=== PATIENT | female | born 1965 | race Caucasian/White ===

== ENCOUNTER 2021-04-19 03:48 | Outpatient (CLI) | payer BC, SELFPAY ==
[2021-04-19 09:03] LABS: ALT 28 U/L (14-59); AST 23 U/L (15-37); Alkaline Phosphatase 48 U/L (46-116); Anion Gap 8.2 mmol/L (3-11); BUN 15 mg/dL (7-18); Bilirubin, Total 0.4 mg/dL (0.2-1.0); CO2 27.8 mmol/L (21.0-32.0); CREATININE 0.6 mg/dL (0.55-1.02); Calculated LDL 76 mg/dL (<100); Chloride 105 mmol/L (98-107); Cholesterol 231 mg/dL (<200); Glucose 84 mg/dL (74-106); HDL Cholesterol 131 mg/dL (40-60); Potassium 4.9 mmol/L (3.5-5.1); Sodium 141 mmol/L (136-145); Total Protein 6.8 g/dL (6.4-8.2); Triglyceride 122 mg/dL (<150)
== END 2021-04-19 03:49 | disposition home or self-care (01) ==
PROVIDERS: PCP Family Medicine; Visit Provider Family Medicine
DX: Z13.220 Encounter for screening for lipoid disorders (principal)
CPT/HCPCS: 36415; 80053; 80061

== ENCOUNTER 2024-02-18 10:10 | Emergency (ER) | payer BC, SELFPAY ==
--- NOTE | 2024-02-18 10:00 | DI.CT_ITS ---
Exam(s) CT HEAD WO EXAM: CT HEAD WO CLINICAL HISTORY: Acute psychosis. TECHNIQUE: Imaging Protocol: Axial computed tomography images with coronal and sagittal reformatted images were created and reviewed COMPARISON: No exams were available for comparison FINDINGS: Ventricles and Extra axial spaces: Normal in size and morphology for the patient's age. Hemorrhage: None. Cerebral parenchyma: No evidence of acute infarct or mass. Bilateral basal ganglia calcifications. White matter changes of small vessel disease, prominent for the patient's age. Midline shift: None. Brainstem/Cerebellum: Normal. Calvarium: Normal. Visualized Paranasal sinuses:Clear. Mastoids: Clear. Soft Tissues: Unremarkable. ORBITS: Unremarkable. PITUITARY: Not enlarged. IMPRESSION: No acute intracranial process. RADIATION DOSE DELIVERED: 774.85mGy.cm Total DLP DATA REPOSITORY: All CT scans at this facility are submitted to the National Radiology Data Registry (NRDR) Dose Index Registry (DIR) with the [employer] (ACR). RADIATION OPTIMIZATION: All CT scans at this facility use at least one of these dose optimization te chniques: automated exposure control; mA and/or kV adjustment per patient size (includes targeted exa ms where dose is matched to clinical indication); or iterative reconstruction.
[2024-02-18 10:15] VITALS: BP 159/94; PULSE 83; RESP 20; TEMP 37; O2SAT 98
[2024-02-18 10:47] LABS: BE (Venous) 5 mmol/L (-2-3); HCO3 (Venous) 29 mmol/L (23-28); O2 Sat (Venous) 68 %; TCO2 (Venous) 26 mmol/L (24-29); pCO2 (Venous) 41 mmHg (41-51); pH (Venous) 7.45 (7.31-7.41); pO2 (Venous) 37 mmHg
[2024-02-18 10:49] LABS: Absolute Basophil Count 0.02 10^3/uL (0.0-0.2); Absolute Lymphocyte Count 0.74 10^3/uL (1.2-3.4); Absolute Monocyte Count 0.26 10^3/uL (0.1-0.8); Basophils % 0.6; HCT 32.8 % (36.0-46.0); Lymphocytes % 23.7; MCH 27.1 pg (27.0-33.0); MCHC 33.5 % (32.0-36.0); MCV 81 fL (80-95); MPV 10.1 fL (8.0-11.0); Monocytes % 8.3; Neutrophils % 67.4; Platelet Count 291 10^3/uL (130-400); RBC 4.06 10^6/uL (3.93-5.22); RDW 14.9 % (11.7-14.6); RDW-SD 43.6 fL; WBC 3.12 10^3/uL (4.4-10.8)
[2024-02-18 11:03] LABS: Ammonia < 10 umol/L (11-32)
[2024-02-18 11:14] LABS: ALT 33 U/L (14-59); AST 22 U/L (15-37); Albumin 4.4 g/dL (3.4-5.0); Alkaline Phosphatase 52 U/L (46-116); Anion Gap 9.5 mmol/L (3-11); BUN 9 mg/dL (7-18); Bilirubin, Total 0.8 mg/dL (0.2-1.0); CO2 28.5 mmol/L (21.0-32.0); CREATININE 0.6 mg/dL (0.55-1.02); Calcium 9.3 mg/dL (8.5-10.1); Chloride 91 mmol/L (98-107); ETHANOL BLOOD < 3.0 mg/dL (<10); Estimated GFR 103.33 (mL/min/1.73m2); Glucose 111 mg/dL (74-106); Potassium 3.9 mmol/L (3.5-5.1); Sodium 129 mmol/L (136-145); TSH (W/Ref FT4) 1.89 uIU/mL (0.36-3.74); Total Protein 7.9 g/dL (6.4-8.2)
[2024-02-18 11:20] LABS: Acetaminophen < 2 ug/mL (10-30); Salicylate < 2.8 mg/dL (<2.8)
[2024-02-18] MEDS: LORazepam 2 MG/ML VIAL 1 MG IVP (11:53)
[2024-02-18] MEDS: Haloperidol 5 MG/ML VIAL 4 MG IVP (11:53)
--- NOTE | 2024-02-18 13:40 | W.ED.GENAD ---
Discharge Plan Discharge Details Chief Complaint: PsychEval Clinical Impression: Psychosis, Manic episode Primary Care Provider: Ramirez Simons ED Provider: Sumeet Corona Home Meds and New Rx's Prescriptions: No Action hydrochlorothiazide 12.5 mg tablet 12.5 mg PO DAILY Qty: 90 3RF atenolol [Tenormin] 50 mg tablet 50 mg PO DAILY Qty: 90 3RF Rx Instructions: to control blood pressure aspirin 81 mg tablet,delayed release (DR/EC) 81 mg PO DAILY omeprazole magnesium [Prilosec OTC] 20 MG tablet,delayed release (DR/EC) 20 mg PO DAILY PRN pyridoxine (vitamin B6) [Vitamin B-6] 100 MG tablet 100 mg PO DAILY Patient Comments: self rx for CTS 12/2013 Rx Instructions: self rx for CTS diphenhydramine HCl [Benadryl] 25 MG capsule 25 mg PO PRN ibuprofen 200 MG capsule 800 mg PO PRN HPI General Date/Time Provider Initiated Documentation: 02/18/24 10:13. HPI Narrative: 58-year-old female with a past medical history of hypertension, carpal tunnel, high cholesterol, and no significant prior psychiatric history presents today for mental status assessment. EMS was called when the patient did not show up for work and a welfare check was performed. Patient was found to be altered. She was brought to for further assessment. Patient states that I kill my , it is all my fault, I cannot believe I did it!, Everyone's can freeze, I have no money to pay the heat or the electric, I cannot believe how I got to this! Can she see we have no heat and no electricity! (However in spite of this the house was 90 degrees, and the electricity was certainly on per EMS). Patient has no other complaints, she is not able to discuss anything else in particular and continues to perseverate on these things. Related Data Home Medications Medication Instructions Recorded Confirmed omeprazole magnesium 20 mg 20 mg PO DAILY PRN 02/10/13 05/23/23 tablet,delayed release (Prilosec OTC) pyridoxine (vitamin B6) 100 mg 100 mg PO DAILY 01/04/14 05/23/23 tablet (Vitamin B-6) diphenhydramine HCl 25 mg capsule 25 mg PO PRN 09/04/16 05/23/23 (Benadryl) ibuprofen 200 mg capsule 800 mg PO PRN 09/04/16 05/23/23 aspirin 81 mg tablet,delayed 81 mg PO DAILY 04/25/21 05/23/23 release atenolol 50 mg tablet (Tenormin) 50 mg PO DAILY #90 tabs 05/23/23 05/23/23 hydrochlorothiazide 12.5 mg tablet 12.5 mg PO DAILY #90 tabs 05/23/23 05/23/23 Previous Rx's Medication Instructions Recorded atenolol 50 mg tablet (Tenormin) 50 mg PO DAILY #90 tabs 05/23/23 hydrochlorothiazide 12.5 mg tablet 12.5 mg PO DAILY #90 tabs 05/23/23 Allergies Allergy/AdvReac Type Severity Reaction Status Date / Time lisinopril AdvReac Intermediate Other (See Verified 05/23/23 08:07 Comment) General Stated Complaint: PsychEval SIMON: 2 Review of Systems All systems reviewed & are unremarkable except as noted in HPI and below Exam Narrative Exam Narrative: 1.Const: Well-nourished, Well-developed, appearing stated age 2.Eyes: PERRL, no conjunctival injection, and symmetrical lids. 3.ENT: Atraumatic external nose and ears. Moist MM. Neck: Symmetric, trachea midline, No thyromegaly. 4.CVS: +S1/S2, No murmurs or gallops. Peripheral pulses 2+ and equal in all extremities. Brisk capillary refill in all extremities. 5.RESP: Unlabored respiratory effort. Clear to auscultation bilaterally. No wheezes rales or rhonchi 6.GI: Soft, Nontender/Nondistended, No hepatosplenomegaly. No guarding or rebound. 7.MSK: Normocephalic/Atraumatic, Extremities w/o deformity or ttp No cyanosis or clubbing, Normal movement of all extremities 8.Skin: Warm, Dry. No rashes or lesions. 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 Sensation grossly intact, no focal neurologic deficits. 10.Psych: ANO x 0, notably pressured speech, flight of ideas, patient perseverates on saying that she called her , kill her animals, does not have electricity, does not have heat, and then rapidly rambles on about other various atypical things like all my gosh I do not know what is going on in my life, how did I ever get here! Patient demonstrates no insight whatsoever. She is not able to otherwise hold a conversation with anyone else. Course Vital Signs Vital signs: Vital Signs Temperature 37.0 C 02/18/24 10:15 Pulse 83 02/18/24 10:15 Respiratory Rate 20 02/18/24 10:15 Blood Pressure 159/94 H 02/18/24 10:15 Pulse Oximetry 98 02/18/24 10:15 Temperature 37.0 C 02/18/24 10:15 Temperature Source Skin 02/18/24 10:15 Pulse 83 02/18/24 10:15 Respiratory Rate 20 02/18/24 10:15 Respiratory Effort Normal, Non-Labored 02/18/24 11:39 Blood Pressure 159/94 H 02/18/24 10:15 Blood Pressure Position Supine 02/18/24 10:15 Pulse Oximetry 98 02/18/24 10:15 Oxygen Delivery Method Room Air 02/18/24 10:15 Oxygen Flow Rate 0 02/18/24 10:15 Lab/Test Results Lab/Test Results: Laboratory Tests Range/Units 02/18/24 10:40 WBC (4.4-10.8) 10^3/uL 3.12 L RBC (3.93-5.22) 10^6/uL 4.06 Hgb (11.2-15.7) g/dL 11.0 L Hct (36.0-46.0) % 32.8 L MCV (80-95) fL 81 MCH (27.0-33.0) pg 27.1 MCHC (32.0-36.0) % 33.5 RDW (11.7-14.6) % 14.9 H Plt Count (130-400) 10^3/uL 291 MPV (8.0-11.0) fL 10.1 Immature Gran % 0.0 Neutrophils % 67.4 Lymphocytes % 23.7 Monocytes % 8.3 Eosinophils % 0.0 Basophils % 0.6 Nucleated RBC % (0.0-0.3) % 0.0 Absolute Neutrophils (1.2-6.7) 10^3/uL 2.10 Absolute Lymphocytes (1.2-3.4) 10^3/uL 0.74 L Absolute Monocytes (0.1-0.8) 10^3/uL 0.26 Absolute Eosinophils (0.0-0.7) 10^3/uL 0.00 Absolute Basophils (0.0-0.2) 10^3/uL 0.02 VBG pH (7.31-7.41) 7.45 H VBG pCO2 (41-51) mmHg 41 VBG pO2 mmHg 37 VBG HCO3 (23-28) mmol/L 29 H VBG Total CO2 (24-29) mmol/L 26 VBG O2 Saturation % 68 VBG Base Excess (-2-3) mmol/L 5 H Sodium (136-145) mmol/L 129 L Potassium (3.5-5.1) mmol/L 3.9 Chloride (98-107) mmol/L 91 L Carbon Dioxide (21.0-32.0) mmol/L 28.5 Anion Gap (3-11) mmol/L 9.5 BUN (7-18) mg/dL 9 Creatinine (0.55-1.02) mg/dL 0.6 Est GFR (CKD-EPI 2020) (mL/min/1.73m2) 103.33 Glucose (74-106) mg/dL 111 H Calcium (8.5-10.1) mg/dL 9.3 Total Bilirubin (0.2-1.0) mg/dL 0.8 AST (15-37) U/L 22 ALT (14-59) U/L 33 Alkaline Phosphatase (46-116) U/L 52 Ammonia (11-32) umol/L < 10 L Total Protein (6.4-8.2) g/dL 7.9 Albumin (3.4-5.0) g/dL 4.4 TSH (0.36-3.74) uIU/mL 1.89 Salicylates (<2.8) mg/dL < 2.8 Acetaminophen (10-30) ug/mL < 2 Ethyl Alcohol (<10) mg/dL < 3.0 Medical Decision Making 58-year-old female with a past medical history of hypertension, carpal tunnel, high cholesterol, and no significant prior psychiatric history presents today for mental status assessment. EMS was called when the patient did not show up for work and a welfare check was performed. Patient was found to be altered. She was brought to for further assessment. Patient states that I kill my , it is all my fault, I cannot believe I did it!, Everyone's can freeze, I have no money to pay the heat or the electric, I cannot believe how I got to this! Can she see we have no heat and no electricity! (However in spite of this the house was 90 degrees, and the electricity was certainly on per EMS). Patient has no other complaints, she is not able to discuss anything else in particular and continues to perseverate on these things. Physical exam demonstrates patient with pressured speech, flight of ideas, and no evidence of clinical personal insight whatsoever. She is not able to hold a conversation continues her focus and perseverations on the heat, the electricity, and her . Patient's sister did call and it turns out that they found out just this week that the legal components of her 's had finished and the patient did not get much money whatsoever. This caused an episode of panic and potential georges at home, which is then led to the patient's current status. Patient denies any focal homicidal or suicidal ideations though. She is not able to communicate clearly enough to demonstrate an intent to harm herself. That being said she appears to demonstrate symptoms consistent with a manic or psychotic episode. Since the patient does not have any registered history of psychiatric illness we will medically evaluate and clear the patient first. She has no nuchal rigidity neck stiffness or headache. Symptoms inconsistent with meningitis or encephalitis. She has no fever. Laboratory workup was performed and shows no white count. CT scan of the head is negative for acute process or tumor or mass. Electrolytes stable. Ammonia level negative. Salicylate and acetaminophen and alcohol level negative. Thyroid function normal showing no signs of thyroid storm. Patient has been medically cleared. Mental health has come and evaluated the patient. They to recommend admission. Patient is here voluntarily. Although the patient is medically cleared, and here voluntarily I feel that if she tries to leave she should be made involuntary. Will keep the patient here while awaiting placement. Patient will be signed out to my colleague. Patient was given 20 mg of Zyprexa which is seem to notably improve her symptoms. FINDINGS: Ventricles and Extra axial spaces: Normal in size and morphology for the patient's age. Hemorrhage: None. Cerebral parenchyma: No evidence of acute infarct or mass. Bilateral basal ganglia calcifications. White matter changes of small vessel disease, prominent for the patient's age. Midline shift: None. Brainstem/Cerebellum: Normal. Calvarium: Normal. Visualized Paranasal sinuses:Clear. Mastoids: Clear. Soft Tissues: Unremarkable. ORBITS: Unremarkable. PITUITARY: Not enlarged. IMPRESSION: No acute intracranial process. Quality:SDOH Health Related Social Needs: No Data to Display PFSH All Active Problems (Updated 02/18/24 @ 16:18 by Sumeet Corona DO) Manic episode (Acute) Psychosis (Acute) Seborrheic dermatitis of scalp (Acute) Arthritis of wrist, right (Acute) Hyperlipidemia (Acute) Seborrhea (Acute 02/19/12) Right-sided low back pain without sciatica (Acute 02/19/12) Lumbago (Acute 02/19/12) Pain in joint, shoulder region (Acute 02/19/12) Generalized anxiety disorder (Acute 02/19/12) Gastro-esophageal reflux disease without esophagitis (Acute 02/19/12) PPI 1-2/wk Essential hypertension (Chronic 01/12/99) dx Dr Bardales 1998; same meds since then; cough on lisinopril Carpal tunnel syndrome (Acute 09/15/12) numbness R>L bilat; confirmed by nerve conduction, Dr Torrez 2012; self rx B6 Medical History Former smoker Family History Mother Hypertension Father Hypertension Other Diabetes Social History Smoking/Tobacco Use Status: Former Tobacco Use Tobacco: How many years used: 20 Second Hand Exposure: No Smoking risk assessment performed?: Yes Alcohol Intake: current Alcohol Intake frequency: a few times a week Alcohol type: beer Drug use: Never Substance use type: does not use Household members: spouse and none Housing: house Number of Children: 2 number of grandchildren: 1 Communication Needs: [employer]ive Lenses 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 Pets and animals: Yes Pets and animals: cat(s) Sexually active: No Do you think of yourself as: straight/heterosexual Current gender identity: female What is your relationship status?: How often do you talk on the phone with friends or family?: never How often do you get together with friends or relatives?: never How often do you attend cheondoism or sabianism services?: decline to answer Do you belong to any clubs or organized social groups?: no Panel score (0-1 are the most socially isolated patients): 0 What type of physical activity do you participate in: other Details: active at work Duration: decline to answer Frequency: decline to answer Paige/Alevism: None Special paige needs: No Seatbelt use: always Helmet use: No Drive intox or ride w/intox day haul or farm charter bus driver: No Do you feel safe at home: No Do you feel safe in your relationship?: No
--- NOTE | 2024-02-18 16:14 | NUR.NOTE ---
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 Last time Pt was like this was when her in 12/2021. Pt was brought to the hospital then and was reported to be severely dehydrated. She also reports Pt's NOK is Humaira Mccollum, phone number is [phone]. Nursing Note:
[2024-02-18 16:15] VITALS: BP 180/82
[2024-02-18 17:19] LABS: Bilirubin Small (Negative); Blood Negative (Negative); Clarity Clear (Clear); Glucose Negative (Negative); Ketones 40 mg/dL (Negative); Leukocyte Esterase Negative (Negative); Nitrite Negative (Negative)
[2024-02-18 17:27] LABS: Bacteria Negative HPF (Negative); C & S Indicated? No; Casts Negative LPF (Negative); Crystals Negative HPF (Negative); Epithelial Cells Few HPF (Negative); Mucus Trace (Negative); RBC 0-2 HPF (0-2)
[2024-02-18 17:29] LABS: *AMPHETAMINES SCREEN URINE Negative (Negative); *BARBITURATES SCREEN URINE Negative (Negative); *BENZODIAZEPINES SCREEN URINE Negative (Negative); Cannabinoids THC Negative (Negative); Cocaine Screen,Urine Negative (Negative); METHADONE URINE SCREEN Negative (Negative); OPIATES URINE SCREEN Negative (Negative)
[2024-02-18 17:32] LABS: Tricyclic Antidepressants Negative (Negative)
--- NOTE | 2024-02-18 19:38 | CMSP_ITS ---
Date of service: 02/18/24 Time of Service: 19:39 Care Management Safety Plan Status Status: Voluntary Reason for Wait Reason for Wait: Inpatient Admission Safety Plan Safety Plan: VOLUNTARY FOR INPATIENT PSYCHIATRIC STABILIZATION.? Patient is appropriate in all interactions since arriving at [facility]; Pt has demonstrated appropriate coping and communication skills, has articulated his or her needs and concerns and is fully engaged during staff interactions. Safety plan has been established with patient, and care team, to adhere to patient goals, identify restrictions based on behavioral status, address nutrition, and determine allowed personal belongings, tools for hygiene and personal care. Determine level of activity including ambulation, level of supervision, visitors, and determine privileges based on behaviors and level of engagement by pt. SAFETY PLAN: 1. Will remain on suicide precautions, in paper clothes 2. Will remain in Zone B under direct supervision of one-on-one staff at all times provided by [employer]; KRYSTINA, [employer] sales floor manager. 3. May have paper cups, plates, finger foods as well as a cardboard spoon with which to eat meals. 4. Follow [facility] Management of the Admitted Behavioral Health Patient policy. 5. Shower available in Zone B without restriction. 6. Personal belongings-soft items permitted at RN discretion. 7. Visitors- at RN discretion. 8. Activities: soft cart items approved per RN discretion. 9.? Bathroom available in Zone B without restriction. 10. Phone: incoming/outgoing calls limited to [facility] cordless phone at RN di scretion. Due to VOLUNTARY status, if patient wishes to leave [facility], staff will contact [facility] Crisis Screener ([phone]) and [employer] ([phone]) as soon as possible. In the event of elopement, notify [facility] Police ([phone]). Patient is currently voluntarily at [facility] and seeking inpatient admission when a bed becomes available. [facility] Frontline Plastic Surgery Coordinator will continue seeking placement. Please contact the [employer] ([phone]) and [facility] Plastic Surgery Coordinator ([phone]) for any needed changes in the Safety Plan. Safety plan has been provided to interdepartmental care team.
--- NOTE | 2024-02-18 19:38 | PDOC.CMSAFE ---
Date of service: 02/18/24 Time of Service: 19:39 Care Management Safety Plan Status Status: Voluntary Reason for Wait Reason for Wait: Inpatient Admission Safety Plan Safety Plan: VOLUNTARY FOR INPATIENT PSYCHIATRIC STABILIZATION.? Patient is appropriate in all interactions since arriving at [facility]; Pt has demonstrated appropriate coping and communication skills, has articulated his or her needs and concerns and is fully engaged during staff interactions. Safety plan has been established with patient, and care team, to adhere to patient goals, identify restrictions based on behavioral status, address nutrition, and determine allowed personal belongings, tools for hygiene and personal care. Determine level of activity including ambulation, level of supervision, visitors, and determine privileges based on behaviors and level of engagement by pt. SAFETY PLAN: 1. Will remain on suicide precautions, in paper clothes 2. Will remain in Zone B under direct supervision of one-on-one staff at all times provided by [employer]; KRYSTINA, [employer] oil pipe inspector. 3. May have paper cups, plates, finger foods as well as a cardboard spoon with which to eat meals. 4. Follow [facility] Management of the Admitted Behavioral Health Patient policy. 5. Shower available in Zone B without restriction. 6. Personal belongings-soft items permitted at RN discretion. 7. Visitors- at RN discretion. 8. Activities: soft cart items approved per RN discretion. 9.? Bathroom available in Zone B without restriction. 10. Phone: incoming/outgoing calls limited to [facility] cordless phone at RN discretion. Due to VOLUNTARY status, if patient wishes to leave [facility], staff will contact [facility] Crisis Screener ([phone]) and [employer] ([phone]) as soon as possible. In the event of elopement, notify [facility] Police ([phone]). Patient is currently voluntarily at [facility] and seeking inpatient admission when a bed becomes available. [facility] Frontline Group Cio will continue seeking placement. Please contact the [employer] ([phone]) and [facility] Group Cio ([phone]) for any needed changes in the Safety Plan. Safety plan has been provided to interdepartmental care team.
--- NOTE | 2024-02-18 19:47 | PDOC.CMPRO ---
Date of service: 02/18/24 Time of Service: 19:47 Care Management Progress Note Progress Note Text Progress Note Text: CM met with staff to huddle regarding Indy's plan of care. Per VASHTI Menezes, Indy was screened at home after a well check was called due to Indy not showing up for work, which is not usual behavior. Per report, she was found lying in bed, speaking nonsense, appearing delusional. She was stating that she killed her ; per report, her about two years ago due to a heart attack. She stated that she planned to end her life by starving herself or shooting herself. [facility] clinician verified that she has access to firearms. Per family, she does not have a known psychiatric history. She is voluntary, although she does meet criteria for an involuntary hold, per and [facility] clinician. She was medically cleared and moved into zone B once a bed became available. Referrals were sent to all accepting hospitals by [facility]. CM will continue to follow. SDOH(Care Management) Screening Will the Patient Participate in the Screening?: Declined to provide
--- NOTE | 2024-02-18 20:57 | W.EDPROG ---
Date of service: 02/18/24 Time of Service: 20:58 Medical Decision Making Care assumed in signout. Patient was a voluntary psychiatric evaluation. She has been reevaluated by [facility] and there are some concerning elements of dishonesty. The patient does have access to multiple firearms which were observed to be in her bedroom. Based on the evaluation by the mental health emergency services, and EE has been filed by them. The patient is otherwise medically cleared. Quality:[facility] Health Related Social Needs: No Data to Display Sign Out Sign Out Data: Sign Out Comment: Manic episode, pressured speech, appears to have mild psychosis. New diagnosis. Medically cleared, CT negative. Given 20 of Zyprexa which is seem to notably improve the symptoms. Currently here voluntarily, but would recommend involuntary status if she does try to leave. Pending placement. Last updated by Sumeet Corona DO at 02/18/24 16:36 Discharge Plan Discharge Details Chief Complaint: PsychEval Clinical Impression: Psychosis, Manic episode Primary Care Provider: Ramirez Simons ED Provider: Endy Haile Home Meds and New Rx's Prescriptions: No Action hydrochlorothiazide 12.5 mg tablet 12.5 mg PO DAILY Qty: 90 3RF atenolol [Tenormin] 50 mg tablet 50 mg PO DAILY Qty: 90 3RF Rx Instructions: to control blood pressure aspirin 81 mg tablet,delayed release (DR/EC) 81 mg PO DAILY omeprazole magnesium [Prilosec OTC] 20 MG tablet,delayed release (DR/EC) 20 mg PO DAILY PRN pyridoxine (vitamin B6) [Vitamin B-6] 100 MG tablet 100 mg PO DAILY Patient Comments: self rx for CTS 12/2013 Rx Instructions: self rx for CTS diphenhydramine HCl [Benadryl] 25 MG capsule 25 mg PO PRN ibuprofen 200 MG capsule 800 mg PO PRN
--- NOTE | 2024-02-18 23:01 | W.EDPROG ---
Date of service: 02/18/24 Time of Service: 23:01 Medical Decision Making Patient reevaluated by [facility] and there was concern for the patient lying. It is noted that she has multiple access to guns. She is now stating that she does not want to be voluntary. Based on their reevaluation, they have filed an EE and the patient will be placed in voluntary status. Otherwise is medically cleared and behavioral symptoms have not recurred since the dose of Zyprexa Quality:[facility] Health Related Social Needs: No Data to Display Sign Out Sign Out Data: Sign Out Comment: Manic episode, pressured speech, appears to have mild psychosis. New diagnosis. Medically cleared, CT negative. Given 20 of Zyprexa which is seem to notably improve the symptoms. Currently here voluntarily, but would recommend involuntary status if she does try to leave. Pending placement. Last updated by Sumeet Corona DO at 02/18/24 16:36 Discharge Plan Discharge Details Chief Complaint: PsychEval Clinical Impression: Psychosis, Manic episode Primary Care Provider: Ramirez Simons ED Provider: Endy Haile Home Meds and New Rx's Prescriptions: No Action hydrochlorothiazide 12.5 mg tablet 12.5 mg PO DAILY Qty: 90 3RF atenolol [Tenormin] 50 mg tablet 50 mg PO DAILY Qty: 90 3RF Rx Instructions: to control blood pressure aspirin 81 mg tablet,delayed release (DR/EC) 81 mg PO DAILY omeprazole magnesium [Prilosec OTC] 20 MG tablet,delayed release (DR/EC) 20 mg PO DAILY PRN pyridoxine (vitamin B6) [Vitamin B-6] 100 MG tablet 100 mg PO DAILY Patient Comments: self rx for CTS 12/2013 Rx Instructions: self rx for CTS diphenhydramine HCl [Benadryl] 25 MG capsule 25 mg PO PRN ibuprofen 200 MG capsule 800 mg PO PRN
--- NOTE | 2024-02-19 05:54 | PDOC.MHCN ---
Date of service: 02/18/24 Time of Service: 19:01 PHQ-9 Over the last 2 weeks, how often have you been bothered by any of the following problems? 1. Little interest or pleasure in doing things: not at all 2. Feeling down, depressed, or hopeless: not at all 3. Trouble falling or staying asleep, or sleeping too much: not at all 4. Feeling tired or having little energy: not at all 5. Poor appetite or overeating: not at all 6. Feeling bad about yourself - or that you are a failure or have let yourself and your family down: not at all 7. Trouble concentrating on things, such as reading the newspaper or watching television: not at all 8. Moving or speaking so slowly that other people could have noticed? - Or the opposite - being so fidgety or restless that you have been moving around a lot more than usual: not at all 9. Thoughts that you would be better off or of hurting yourself in some way: not at all Total score: 0 If you checked off any problems, how difficult have these problems made it for you to do your work, take care of things at home, or get along with other people?: not difficult at all Source: Developed by Drs. Daron Mcfadden, Sole Muniz, Max Winston and colleagues, with an educational laura from [employer]. Suicide Severity Rate CSSRS Have you wished you were or wished you could go to sleep and not wake up?: Yes Have you actually had any thoughts of killing yourself?: Yes CSSRS2 Have you been thinking about how you might do this?: Yes Have you had these thoughts and had some intention of acting on them?: Yes Have you started to work out or worked out the details of how to kill yourself? Do you intend to carry out this plan?: Yes CSSRS3 Have you ever done anything, started to do anything or prepared to do anything to end your life?: Yes CSSRS4 Was this within the past three months?: Yes Screening Score Total Score: 8 Screening: Positive Mental Health Emergency Note Release [facility] release signed:: Yes Reason for Visit In the last 2 weeks has the pt presented for ES prior to today?: No Non Suicidal Self Injury Current: No Safety Risk/Harm to Self or Others Current Ideation to Harm Self or Others: No Asssessment/Mental Status Appearance: Disheveled Attitude: Guarded Behavior: Unremarkable Speech: Hesitant Affect: Flat and Other (restricted and shallow) Mood: Other (fine per clients report) Thought process: Blocking Hallucinations: yes, Visual and Auditory Delusions: yes, Bizarre Attention: Inattention Perception: Not impaired Orientation: Fully orientated Memory: Intact Insight: Fair Judgement: Fair Neurovegetative Symptoms Sleep: Decrease Appetitie: Decrease Interests: Decrease Energy: Decrease Libido: Not applicable Substance Use: Have you used substances in the last 7 days?: yes, [place] - beer on Saturday Impression Client was brought into [facility] after a mobile crisis response to the clients home after a welfare check called in by her boss after not showing up for work. Client was found in her room on her bed. Client planned to starve herself to . Client was in a psychosis and not able to complete an assessment at that time. Client was screened and assessed in person when medically cleared after being given medication to sleep. Client stayed to one word answers and did not look this securities underwriter in the eyes. Client was observed to be laying flat on her back and had her hands crossed on her body. Client scored a 0/27 on the PHQ-9. Client was not honest on the CSSRS, client reported no to all questions but due to the clients actions she should have reported yes. CLient was not honest with access to means. Client reported no access to firearms but the client has access to three different guns in her bedroom. CLient has a history of have a psychotic break since the passing of her two years ago. Client has not seen anyone for her mental health or has a history of inpatient treatment. Plan/Disposition Recommended Disposition: Hospitalization No, Psych Screening and Other (EE ). Plan: Client will remain at [facility] Zone B on EE status. Client will need twice daily assessment when EE is approved by [facility]. Reports/communication Outcome discussed with: ED/Personnel
[2024-02-19 08:23] VITALS: BP 157/09; PULSE 88; TEMP 36.2; O2SAT 98
--- NOTE | 2024-02-19 09:35 | W.EDPROG ---
Date of service: 02/19/24 Time of Service: 09:38 Medical Decision Making Patient was initially seen and assessed and medically cleared by myself yesterday. I received her back in signout this morning. Mental health feels that the patient should be here involuntarily which I agree if she tried to leave. Last night the patient elected to try to leave, and does not want to stay voluntarily. She continues to demonstrate continued clear lack of decision-making capability, understanding of the current reality of her situation, or have insight of her lack of understanding or perception of the current scenario. Patient also does not appear safe at home as she does have access to firearms. We agree with mental health recommendations. I have completed EE paperwork. Pending second certification Quality:[facility] Health Related Social Needs: No Data to Display Sign Out Sign Out Data: Sign Out Comment: Manic episode, pressured speech, appears to have mild psychosis. New diagnosis. Medically cleared, CT negative. Given 20 of Zyprexa which is seem to notably improve the symptoms. Currently here voluntarily, but would recommend involuntary status if she does try to leave. Pending placement. Last updated by Sumeet Corona DO at 02/18/24 16:36 Sign Out Comment: EE filed by [facility] , is not interested in voluntary placement will need 2nd cert tomorrow medically cleared no issues after zyprexa dose Last updated by Endy Haile MD at 02/18/24 23:05 Sign Out Comment: Patient has been EEd and is pending second certification. No issues on the overnight shift. Last updated by Daron Acosta MD at 02/19/24 07:04 Discharge Plan Discharge Details Chief Complaint: PsychEval Clinical Impression: Psychosis, Manic episode Primary Care Provider: Ramirez Simons ED Provider: Sumeet Corona Home Meds and New Rx's Prescriptions: No Action hydrochlorothiazide 12.5 mg tablet 12.5 mg PO DAILY Qty: 90 3RF atenolol [Tenormin] 50 mg tablet 50 mg PO DAILY Qty: 90 3RF Rx Instructions: to control blood pressure aspirin 81 mg tablet,delayed release (DR/EC) 81 mg PO DAILY omeprazole magnesium [Prilosec OTC] 20 MG tablet,delayed release (DR/EC) 20 mg PO DAILY PRN pyridoxine (vitamin B6) [Vitamin B-6] 100 MG tablet 100 mg PO DAILY Patient Comments: self rx for CTS 12/2013 Rx Instructions: self rx for CTS diphenhydramine HCl [Benadryl] 25 MG capsule 25 mg PO PRN ibuprofen 200 MG capsule 800 mg PO PRN
--- NOTE | 2024-02-19 13:35 | PDOC.CMSAFE ---
Date of service: 02/19/24 Time of Service: 13:35 Care Management Safety Plan Status Status: Involuntary Reason for Wait Reason for Wait: Inpatient Admission and Assessment/Screening Safety Plan Safety Plan: INVOLUNTARY FOR INPATIENT PSYCHIATRIC STABILIZATION.? Awaiting 2nd Certification planned for this evening. [facility] Crisis Screener reports anticipating patient will no longer meet criteria and be walked off the EE and safety planned home; CM updated Nursing Cafe Associate and interdepartmental team. Patient is appropriate in all interactions since arriving at [facility]; Pt has demonstrated appropriate coping and communication skills, has articulated her needs and is fully engaged during staff interactions. Indy is appropriately engaging with visitors and natural supports via cordless phone, no behavioral concerns reported. Safety plan has been established with patient, and care team, to adhere to patient goals, identify restrictions based on behavioral status, address nutrition, and determine allowed personal belongings, tools for hygiene and personal care. Determine level of activity including ambulation, level of supervision, visitors, and determine privileges based on behaviors and level of engagement by pt. INVOLUNTARY SAFETY PLAN: 1. Will remain on suicide precautions, in paper clothes 2. Will remain in Zone B under direct supervision of one-on-one staff at all times provided by [employer]; KRYSTINA, INLETTER enrollment management coordinator. 3. May have paper cups, plates, finger foods as well as a cardboard spoon with which to eat meals. 4. Follow [facility] Management of the Admitted Behavioral Health Patient policy. 5. Shower available in Zone B without restriction. 6. Personal belongings-soft items permitted at RN discretion. 7. Visitors-permitted one at a time at RN discretion. 8. Activities: soft cart items approved per RN discretion. 9.? Bathroom available in Zone B without restriction. 10. Phone: limited to [facility] cordless phone at RN discretion. Due to INVOLUNTARY status, patient is being held at [facility] by the Department of Mental Health ([facility]) until 2nd certification by [facility] Psychiatrist can be performed (within 24 hours). Staff will provide de-escalation support (CPI) as needed. If patient wishes to leave [facility], staff will contact [facility] Crisis Screener ([phone]) and Front End Software Developer ([phone]) as soon as possible. In the event of elopement, notify [facility] Police ([phone]). Patient is currently involuntarily at [facility]. [facility] Frontline Sample Maker will continue seeking placement. Please contact the Front End Software Developer for any needed changes to Safety Plan. Safety plan has been provided to interdepartmental care team. Patient will be transported by wood molder at time of discharge.
--- NOTE | 2024-02-19 18:08 | ED.PROG_ITS ---
Date of service: 02/19/24 Time of Service: 18:09 Medical Decision Making Patient evaluated by states psychiatrist for second certification. She reports that the patient seems to be more organized than initial presentation, but lacks insight and has no interest in voluntary placement. She is upholding second c ertification for involuntary placement. Med rec has been completed and home medications have been ordered. Quality:[facility] Health Related Social Needs: No Data to Display Sign Out Sign Out Data: Sign Out Comment: Manic episode, pressured speech, appears to have mild psychosis. New diagnosis. Medically cleared, CT negative. Given 20 of Zyprexa which is seem to notably improve the symptoms. Currently here voluntarily, but would recommend involuntary status if she does try to leave. Pending placement. Last updated by Sumeet Corona DO at 02/18/24 16:36 Sign Out Comment: EE filed by [facility] , is not interested in voluntary placement will need 2nd cert tomorrow medically cleared no issues after zyprexa dose Last updated by Endy Haile MD at 02/18/24 23:05 Sign Out Comment: Patient has been EEd and is pending second certification. No issues on the overnight shift. Last updated by Daron Acosta MD at 02/19/24 07:04 Sign Out Comment: Patient stable throughout the shift. Pending second certification. Moderate clinical improvement was noted today. Last updated by Sumeet Corona DO at 02/19/24 14:05 Discharge Plan Discharge Details Chief Complaint: PsychEval Clinical Impression: Psychosis, Manic episode Primary Care Provider: Ramirez Simons ED Provider: Endy Haile Home Meds and New Rx's Prescriptions: No Action hydrochlorothiazide 12.5 mg tablet 12.5 mg PO DAILY Qty: 90 3RF atenolol [Tenormin] 50 mg tablet 50 mg PO DAILY Qty: 90 3RF Rx Instructions: to control blood pressure aspirin 81 mg tablet,delayed release (DR/EC) 81 mg PO DAILY omeprazole magnesium [Prilosec OTC] 20 MG tablet,delayed release (DR/EC) 20 mg PO DAILY PRN pyridoxine (vitamin B6) [Vitamin B-6] 100 MG tablet 100 mg PO DAILY Patient Comments: self rx for CTS 12/2013 Rx Instructions: self rx for CTS diphenhydramine HCl [Benadryl] 25 MG capsule 25 mg PO PRN ibuprofen 200 MG capsule 800 mg PO PRN biotin 1 mg capsule 1 mg PO DAILY
[2024-02-19] MEDS: QUEtiapine 50 MG TAB PO (20:21)
[2024-02-20 07:45] VITALS: BP 154/92; PULSE 89; RESP 18; TEMP 36.6; O2SAT 100
--- NOTE | 2024-02-20 07:51 | CMSP_ITS ---
Date of service: 02/20/24 Time of Service: 07:51 Care Management Safety Plan Status Status: Voluntary Reason for Wait Reason for Wait: Inpatient Admission Safety Plan Safety Plan: INVOLUNTARY FOR INPATIENT PSYCHIATRIC STABILIZATION.? Patient is appropriate in all interactions since arriving at [facility]; Pt has demonstrated appropriate coping and communication skills, has articulated her needs and is fully engaged during staff interactions. Indy is appropriately engaging with visitors and natural supports via cordless phone, no behavioral concerns reported. Safety plan has been established with patient, and care team, to adhere to patient goals, identify restrictions based on behavioral status, address nutrition, and determine allowed personal belongings, tools for hygiene and personal care. Determine level of activity including ambulation, level of supervision, visitors, and determine privileges based on behaviors and level of engagement by pt. Per CARLOS Menezes at [facility] discussion with MD concerning possibly walking off Indy; at this time the MD is not comfortable with this plan. [facility] certified involuntary hold 02/19/24. Indy will remain at [facility] at this time, [facility] will continue to seek involuntary inpatient treatment. INVOLUNTARY SAFETY PLAN: 1. Will remain on suicide precautions, in paper clothes 2. Will remain in Zone B under direct supervision of one-on-one staff at all times provided by [employer]; KRYSTINA, FLAVORING MACHINE OPERATOR talent acquisition administrator. 3. May have paper cups, plates, finger foods as well as a cardboard spoon with which to eat meals. 4. Follow [facility] Management of the Admitted Behavioral Health Patient policy. 5. Shower available in Zone B without restriction. 6. Personal belongings-soft items permitted at RN discretion. 7. Visitors-permitted one at a time at RN discretion. 8. Activities: soft cart items approved per RN discretion. 9.? Bathroom available in Zone B without restriction. 10. Phone: limited to [facility] cordless phone at RN discretion. Due to INVOLUNTARY status, patient is being held at [facility] by the Department of Mental Health (DM) until 2nd certification by [facility] Psychiatrist can be performed (within 24 hours). Staff will provide de-escalation support (CPI) as needed. If patient wishes to leave [facility], staff will contact [facility] Crisis Screener ([phone]) and Clin Tech ([phone]) as soon as possible. In the event of elopement, notify [facility] Police ([phone]). Patient is currently involuntarily at [facility]. [facility] Frontline Food Checker will continue seeking placement. Please contact the Clin Tech for any needed changes to Safety Plan. Safety plan has been provided to interdepartmental care team. Patient will be transported by pharmacy technologist at time of discharge.
--- NOTE | 2024-02-20 07:51 | PDOC.CMSAFE ---
Date of service: 02/20/24 Time of Service: 07:51 Care Management Safety Plan Status Status: Voluntary Reason for Wait Reason for Wait: Inpatient Admission Safety Plan Safety Plan: INVOLUNTARY FOR INPATIENT PSYCHIATRIC STABILIZATION.? Patient is appropriate in all interactions since arriving at [facility]; Pt has demonstrated appropriate coping and communication skills, has articulated her needs and is fully engaged during staff interactions. Indy is appropriately engaging with visitors and natural supports via cordless phone, no behavioral concerns reported. Safety plan has been established with patient, and care team, to adhere to patient goals, identify restrictions based on behavioral status, address nutrition, and determine allowed personal belongings, tools for hygiene and personal care. Determine level of activity including ambulation, level of supervision, visitors, and determine privileges based on behaviors and level of engagement by pt. Per CARLOS Menezes at [facility] discussion with MD concerning possibly walking off Indy; at this time the MD is not comfortable with this plan. [facility] certified involuntary hold 02/19/24. Indy will remain at [facility] at this time, [facility] will continue to seek involuntary inpatient treatment. INVOLUNTARY SAFETY PLAN: 1. Will remain on suicide precautions, in paper clothes 2. Will remain in Zone B under direct supervision of one-on-one staff at all times provided by [employer]; KRYSTINA, FAST FOOD TEAM MEMBER labor law professor. 3. May have paper cups, plates, finger foods as well as a cardboard spoon with which to eat meals. 4. Follow [facility] Management of the Admitted Behavioral Health Patient policy. 5. Shower available in Zone B without restriction. 6. Personal belongings-soft items permitted at RN discretion. 7. Visitors-permitted one at a time at RN discretion. 8. Activities: soft cart items approved per RN discretion. 9.? Bathroom available in Zone B without restriction. 10. Phone: limited to [facility] cordless phone at RN discretion. Due to INVOLUNTARY status, patient is being held at [facility] by the Department of Mental Health (DM) until 2nd certification by [facility] Psychiatrist can be performed (within 24 hours). Staff will provide de-escalation support (CPI) as needed. If patient wishes to leave [facility], staff will contact [facility] Crisis Screener ([phone]) and Blower And Compressor Assembler ([phone]) as soon as possible. In the event of elopement, notify [facility] Police ([phone]). Patient is currently involuntarily at [facility]. [facility] Frontline Painting And Coating Worker will continue seeking placement. Please contact the Blower And Compressor Assembler for any needed changes to Safety Plan. Safety plan has been provided to interdepartmental care team. Patient will be transported by drawing tender at time of discharge.
[2024-02-20] MEDS: Aspirin E.C. 81 MG TABEC PO (08:15)
[2024-02-20] MEDS: hydroCHLOROthiazide 12.5 MG TAB PO (08:15)
[2024-02-20] MEDS: Atenolol 50 MG TAB PO (08:15)
--- NOTE | 2024-02-20 12:46 | W.EDPROG ---
Date of service: 02/20/24 Time of Service: 12:47 Medical Decision Making Rest comfortably no acute distress. Patient is been accepted at [facility] provider to provider signout has been given to Codi Andrade Quality:[facility] Health Related Social Needs: No Data to Display Sign Out Sign Out Data: Sign Out Comment: Manic episode, pressured speech, appears to have mild psychosis. New diagnosis. Medically cleared, CT negative. Given 20 of Zyprexa which is seem to notably improve the symptoms. Currently here voluntarily, but would recommend involuntary status if she does try to leave. Pending placement. Last updated by Sumeet Corona DO at 02/18/24 16:36 Sign Out Comment: EE filed by [facility] , is not interested in voluntary placement will need 2nd cert tomorrow medically cleared no issues after zyprexa dose Last updated by Endy Haile MD at 02/18/24 23:05 Sign Out Comment: Patient has been EEd and is pending second certification. No issues on the overnight shift. Last updated by Daron Acosta MD at 02/19/24 07:04 Sign Out Comment: Patient stable throughout the shift. Pending second certification. Moderate clinical improvement was noted today. Last updated by Sumeet Corona DO at 02/19/24 14:05 Sign Out Comment: EE + 2nd Cert Eval'd by [facility] today Home meds ordered Last updated by Endy aHile MD at 02/19/24 21:18 Sign Out Comment: No issues overnight. Patient remains on EE/second certification pending involuntary inpatient psychiatric admission. Last updated by Daron Acosta MD at 02/20/24 06:47 Discharge Plan Disposition Patient Disposition: Psychiatric Hospital/Unit Specific Psychiatric Facility: [facility] Condition: Stable Discharge Details Chief Complaint: PsychEval Clinical Impression: Psychosis, Manic episode Primary Care Provider: Ramirez Simons ED Provider: Jose R Johnson Home Meds and New Rx's Prescriptions: No Action hydrochlorothiazide 12.5 mg tablet 12.5 mg PO DAILY Qty: 90 3RF atenolol [Tenormin] 50 mg tablet 50 mg PO DAILY Qty: 90 3RF Rx Instructions: to control blood pressure aspirin 81 mg tablet,delayed release (DR/EC) 81 mg PO DAILY omeprazole magnesium [Prilosec OTC] 20 MG tablet,delayed release (DR/EC) 20 mg PO DAILY PRN pyridoxine (vitamin B6) [Vitamin B-6] 100 MG tablet 100 mg PO DAILY Patient Comments: self rx for CTS 12/2013 Rx Instructions: self rx for CTS diphenhydramine HCl [Benadryl] 25 MG capsule 25 mg PO PRN ibuprofen 200 MG capsule 800 mg PO PRN biotin 1 mg capsule 1 mg PO DAILY
--- NOTE | 2024-02-20 12:56 | PDOC.MHPN2 ---
Date of service: 02/19/24 Time of Service: 11:38 Mental Health Emergency Note Release NK release signed:: No Reason for Visit Per ESC Angie's note from 02/18/2024: [facility] PD request Mobile Crisis response to the client's home as she was called in as a well-person check. Police had to break her window in her door to get in when she did not respond to numerous knock by them and prior her [id number]. After mobile crisis response the client was brought to [facility] for an assessment, once medically cleared due to clients presentation an EE was written. The client is seen in person at [facility] zone b this morning for first daily assessment while awaiting involuntary placement. In the last 2 weeks has the pt presented for ES prior to today?: No Impression The client is a 58 y/o female that lives in [place], [place] independently. 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 Per [facility] Mabel's note from 02/17: Client was brought into [facility] after a mobile crisis response to the clients home after a welfare check called in by her boss after not showing up for work. Client was found in her room on her bed. Client planned to starve herself to . Client was in a psychosis and not able to complete an assessment at that time. Due to clients presentation yesterday an EE was completed on the client. This publicity writer meets with the client in person at [facility] for first daily assessment. The client is sitting on the edge of her bed dressed in proper paper hospital attire when this publicity writer arrives in person. The client reports that she is doing much better today than she was yesterday. The client reports that yesterdays presentation appears to have been brought on by stress as Saturday night she received a call from her brother in law that the estate of her late went through and she is going to be getting minimal funds from it. The client goes on to report that this made her become paranoid as she felt like she was going to lose her house and everything in it. 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 The client reports at this time she told her boss and she thought that they had told her that she was fired. The client reports that Saturday night she went home from work and laid in bed stating that she was giving up especially if she was losing her house and was fired from her job. The client reports that she talked to her employer today and they reported that they did not fire her and are looking forward to being able to have her back at work. The client denies SI/HI as well as intent and plan. The client identifies her sister in law Abigail Thayer, her sister Humaira Mccollum and her employer and co-workers at [employer] as her natural supports. The client denies any professional supports at this time, but reports to this publicity writer that she will do whatever [facility] recommends that she does on an outpatient basis. The client identifies her 5 cats at her reason to live. While the client appears to be much more coherent this publicity writer and the provider agree that she will await for the 2nd certification. Plan/Disposition Recommended Disposition: Hospitalization No. Plan: The client will remain at [facility] ED on EE status pending 2nd certification with a psychiatrist after 5p this evening. The clients referrals have been faxed to [facility], [facility], [facility], and [facility]. The client will be re-assessed by [facility] daily until placement is secured or the client does not meet criteria for an involuntary hold. Person reported agreement to plan: No Reports/communication Outcome discussed with: ED/Personnel (Verbal passover given to [facility] ED attending provider Dr. Corona)
--- NOTE | 2024-02-20 14:10 | PDOC.MHPN2 ---
Date of service: 02/20/24 Time of Service: 14:10 Mental Health Emergency Note Release [facility] release signed:: Yes Reason for Visit On 02/18/2024 [facility] PD request Mobile Crisis response to the client's home as she was called in as a well-person check. Police had to break her window in her door to get in when she did not respond to numerous knock by them and prior her [id number]. After the mobile crisis response the client was brought to [facility] for an assessment, once medically cleared due to clients presentation an EE was written. The client is seen in person at [facility] zone b this morning for first daily assessment of the day while awaiting involuntary placement. In the last 2 weeks has the pt presented for ES prior to today?: Unknown Impression The client is a 58 y/o female that lives in [place], [place] independently. 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 All underrepresented categories are respected during this assessment. The client denied any previous attempts to by suicide. Screening tools were not administered today. This clinician met with and assessed thee client and it is this clinician's professional opinion that she no longer meet criteria for inpatient treatment and discussed this with the current attending. He also assessed and it was his professional opinion that something more was going on with the client and that her thoughts were tangential and she did not appear to be bothered on way or another about being held on involuntary treatment. The client presented in proper MH scrubs making her bed when this clinician arrived. She was friendly and cooperative. She engaged appropriately with the discussion and showed good insight and judgment. She made good eye contact and was at times was tearful. She shared full recollection of the events that happened which lead to her being brought to the ED. She even reported she knew this clinician was there. She showed this clinician the notes she has been keeping for care of her cats while she is gone and what clothes to pack for her for placement. Plan/Disposition Recommended Disposition: Hospitalization facilities contacted. Plan: The client was accepted to and will be transported today. Person reported agreement to plan: Yes Facilities contacted if Applicable DON Accepted, Accepted/transfer pending. Information Sent to [place]: Referral Reports/communication Outcome discussed with: ED/Personnel
--- NOTE | 2024-02-21 09:02 | NUR.NOTE ---
Accessed Pt chart to obtain the discharge time for the [facility].
== END 2024-02-20 19:50 ==
PROVIDERS: Student in an Organized Health Care Education/Training Program; Emergency Provider Emergency Medicine; PCP Family Medicine
DX: F29 Unspecified psychosis not due to a substance or known physiological condition (principal); F30.9 Manic episode, unspecified; I10 Essential (primary) hypertension; E78.5 Hyperlipidemia, unspecified; Z79.82 Long term (current) use of aspirin; Z87.891 Personal history of nicotine dependence
CPT/HCPCS: 00123; 36415; 80053; 80307; 82805; 96127; 96374; 96376; 99285; 70450; 80320; 80329; 81003; 81015; 82140; 84443; 85025; J1630; J2060

== ENCOUNTER 2024-03-05 17:52 | Emergency (ER) | payer BC, SELFPAY ==
[2024-03-05 18:11] VITALS: BP 164/86; PULSE 86; RESP 30; TEMP 37.1; O2SAT 99
--- NOTE | 2024-03-05 18:26 | ED.GENADUL_ITS ---
Discharge Plan Disposition Patient Disposition: Home Condition: Stable Discharge Details Clinical Impression: Acute confusion Primary Care Provider: Ramirez Simons ED Provider: Sumeet Connolly Home Meds and New Rx's Prescriptions: No Action atenolol [Tenormin] 50 mg tablet 50 mg PO DAILY Qty: 90 3RF Rx Instructions: to control blood pressure aspirin 81 mg tablet,delayed release (DR/EC) 81 mg PO DAILY cyanocobalamin (vitamin B-12) 1,000 mcg tablet 1,000 mcg PO DAILY Qty: 90 3RF naltrexone 50 mg tablet 50 mg PO DAILY Qty: 90 3RF quetiapine 50 mg tablet 50 mg PO QHS Qty: 60 0RF omeprazole magnesium [Prilosec OTC] 20 MG tablet,delayed release (DR/EC) 20 mg PO DAILY PRN pyridoxine (vitamin B6) [Vitamin B-6] 100 MG tablet 100 mg PO DAILY Patient Comments: self rx for CTS 12/2013 Rx Instructions: self rx for CTS diphenhydramine HCl [Benadryl] 25 MG capsule 25 mg PO PRN ibuprofen 200 MG capsule 800 mg PO PRN losartan [Cozaar] 25 mg tablet 50 mg PO DAILY biotin 1 mg capsule 1 mg PO DAILY Discharge Instructions Instructions: Altered Mental Status (ED), Anemia (ED) Additional Instructions: You were seen in the emergency department for your acute confusion, we found no medical source of your confusion, CT of your head is benign, there is no sign of metabolic encephalopathy, your hyponatremia or low sodium level has improved only a mild hyponatremia of 132, normal is 136. This is not likely the cause of your confusion. You have anemia and possibly GI bleeding but not to an admittable level, you have reasonable follow-up tomorrow. Please have your hemoglobin rechecked at your primary care appointment, I am placing you on the list for upper endoscopy/colonoscopy with the general surgery practice, please call their offices if you have not heard from them to schedule in the next few days. Please return to the emergency room for any weakness, dizziness, paleness, altered mental status. Referrals: [facility] [Provider Group] Ramirez Simons DO [Primary Care Provider] - Discharge Data Discharge Date/Time-TO BE ENTERED AT DEPARTURE: 03/06/24 00:11 HPI General Date/Time Provider Initiated Documentation: 03/05/24 17:54 . HPI Narrative: 58 year-old female presents to ED today by POV/ambulating with her family with a chief complaint of acute confusion, recent discharge from [facility], known hyponatremia with onset noted acutely today at work, had trouble focusing and high anxiety. Quality described as unable to qualify- having trouble finding the words, no radiation to syncope, chest pain, dizziness, shortness of breath, diarrhea, black/bloody stools, nausea/vomiting, fever, headache, neck pain. Severity is described as unable to quantify. Palliating factors include nothing specific attempted. Provoking factors include family questions if her sodium is the source of confusion. Patient not anticoagulated. Related Data Home Medications Medication Instructions Recorded Confirmed omeprazole magnesium 20 mg 20 mg PO DAILY PRN 02/10/13 03/06/24 tablet,delayed release (Prilosec OTC) pyridoxine (vitamin B6) 100 mg 100 mg PO DAILY 01/04/14 03/06/24 tablet (Vitamin B-6) diphenhydramine HCl 25 mg capsule 25 mg PO PRN 09/04/16 03/06/24 (Benadryl) ibuprofen 200 mg capsule 800 mg PO PRN 09/04/16 03/06/24 aspirin 81 mg tablet,delayed 81 mg PO DAILY 04/25/21 03/06/24 release atenolol 50 mg tablet (Tenormin) 50 mg PO DAILY #90 tabs 05/23/23 03/06/24 biotin 1 mg capsule 1 mg PO DAILY 02/19/24 03/06/24 losartan 25 mg tablet (Cozaar) 50 mg PO DAILY 03/05/24 03/06/24 cyanocobalamin (vitamin B-12) 1,000 mcg PO DAILY #90 tabs 03/06/24 03/06/24 1,000 mcg tablet naltrexone 50 mg tablet 50 mg PO DAILY #90 tabs 03/06/24 03/06/24 quetiapine 50 mg tablet 50 mg PO QHS #60 tabs 03/06/24 03/06/24 Previous Rx's Medication Instructions Recorded atenolol 50 mg tablet (Tenormin) 50 mg PO DAILY #90 tabs 05/23/23 cyanocobalamin (vitamin B-12) 1,000 mcg PO DAILY #90 tabs 03/06/24 1,000 mcg tablet naltrexone 50 mg tablet 50 mg PO DAILY #90 tabs 03/06/24 quetiapine 50 mg tablet 50 mg PO QHS #60 tabs 03/06/24 Allergies Allergy/AdvReac Type Severity Reaction Status Date / Time lisinopril AdvReac Intermediate Other (See Verified 03/06/24 13:20 Comment) General Stated Complaint: PsychEval SIMON: 3 Review of Systems All systems reviewed & are unremarkable except as noted in HPI and below Exam Narrative Exam Narrative: GENERAL APPEARANCE: Well-nourished, non-toxic, awake and alert, atraumatic, no acute distress. SKIN: Warm, pink, dry, intact, without rashes/lesions/ulcerations. HEAD: Normocephalic, atraumatic, normal hair distribution for gender/age. EYES: Pupils PERRLA, EOMs intact without nystagmus, normal conjunctiva, no exudates on lids/lashes. ENT: Nares patent, no circumoral cyanosis, no facial swelling NECK: Supple, trachea midline, painless cervical ROM. LUNGS/CHEST: Lungs CTA bilaterally- no rhonchi/rales/wheezes, non-labored respirations, normal A/P diameter, symmetrical expansion, no chest wall deformity HEART (CV/PV): Regular rate and rhythm without murmur, no peripheral edema, no JVD. ABDOMEN: Soft, non-distended, no guarding, no tenderness. MSK: Normal ROM, no swelling/deformity to bilateral UEs or LEs, moving all extremities without weakness, no cyanosis, spine midline without tenderness, normal curvature. NEURO: Mental Status AAOx4 - alert to person, place, time, events No facial droop, no forehead involvement, no dysmetria with FNF, no asterixis Motor: No focal weakness - strength 5/5 in bilateral UEs and LEs, proximal and distal, symmetric. Sensory: sensation intact to light touch globally. Gait normal: patient ambulated without ataxia into ED room. PSYCH: euthymic, cooperative, pleasant, appropriate speech Course Vital Signs Vital signs: Vital Signs Temperature 37.1 C 03/05/24 18:11 Pulse 86 03/05/24 18:11 Respiratory Rate 30 H 03/05/24 18:11 Blood Pressure 164/86 H 03/05/24 18:11 Pulse Oximetry 99 03/05/24 18:11 Temperature 37.1 C 03/05/24 18:11 Temperature Source Tympanic 03/05/24 18:11 Pulse 86 03/05/24 18:11 Respiratory Rate 30 H 03/05/24 18:11 Blood Pressure 164/86 H 03/05/24 18:11 Blood Pressure Position Sitting 03/05/24 18:11 Pulse Oximetry 99 03/05/24 18:11 Oxygen Delivery Method Room Air 03/05/24 18:11 Oxygen Flow Rate 0 03/05/24 18:11 Pain Level 0 03/05/24 18:11 Medical Decision Making This dictation utilizes [id number] dictation software and may contain unedited grammatical errors. 58 y/o F presents to ED today with a chief complaint of acute confusion, anxiety, had trouble finishing her day at work- denies pain anywhere, denies fever, had mild hyponatremia on labs and was recently discharged from [facility]. [ ]. Patients' medical history: [ ]. Family and social history: [ ]. Pertinent exam findings / vital signs include [ ]. Differential / pathologies of concern include [ ]. Diagnostic studies of: -CBC, VBG, CRP/ESR, CMP, LFT, magnesium, ammonia, CK, lipase, procalcitonin, TSH, CT head without contrast. -CT head benign -CBC no leukocytosis, does show significant anemia, 9.3 dropping to 8.6 after 1 L IVF -Magnesium WNL -CRP/ESR wnl -LFTs benign -CK negative -Lactate/procal negative -Lipase wnl -TSH benign Interventions of: -IVF, recommend re-check at PCP office tomorrow of H+H, recommend outpatient EGD/colonoscopy. ED Course/Assessment/Plan: 58-year-old female presents with acute confusion, she was recently discharged from [facility] and has a primary care appointment tomorrow to address possible need for new anxiety medications, with significant workup we found no cause for organic encephalopathy or confusion, her CBC is benign, her past hyponatremia has improved to only mild hyponatremia with a sodium of 132, her VBG is within normal limits, her BUN is not elevated, she does have anemia and p ossibly stable GI bleeding, this dropped to 8.6 with 1 L of fluid but her Hemoccult was negative. I discussed this with the patient and the patient's family and they prefer to discharge home and recheck hemoglobin tomorrow at PCP appointment, I will place him on a list for EGD/colonoscopy follow-up. Counseled on strict return criteria for any increasing dizziness, weakness, altered mental status. Findings not consistent with organic causes of acute confusion, suspect possible psychiatric contributions to the patient's confused state, incidental finding of anemia, not consistent with stroke or TIA. Disposition of Acute Confusion. Patient verbalized understanding of the plan and return to ED criteria and engaged in shared decision making. Medical Records Medical records reviewed: Yes I reviewed the patient's medical records. Imaging Data Radiologic Study: Attestation: I personally reviewed and interpreted this imaging study as follows: Imaging: CT Scan Radiologist's impression: Exam: CT Head Without Contrast Exam date and time: 03/05/2024 9:15 PM Age: 58 years old Clinical indication: Other: Confusion TECHNIQUE: Imaging protocol: Computed tomography of the head without contrast. COMPARISON: CT HEAD WO 02/18/2024 11:54 AM FINDINGS: Brain: Slight prominence of cerebral sulci reflects mild cerebral atrophy. Poorly marginated hypodensities scattered throughout the deep and periventricular white matter of both cerebral hemispheres are consistent with underlying microvascular ischemic changes. Brainstem and cerebellum are unremarkable and there is no evidence of acute transcortical infarction or recent intracranial hemorrhage. Cerebral ventricles: Ventricular and cisternal spaces are normal in size and configuration and there is no midline shift or hydrocephalus. Paranasal sinuses: Grossly clear throughout. Mastoid air cells: Grossly clear bilaterally. Bones: Bony calvarium and skull base are intact and no acute fractures are detected. Soft tissues: Unremarkable. IMPRESSION: Mild atrophy and underlying microvascular ischemic changes with no evidence of acute transcortical infarction, recent intracranial hemorrhage or hydrocephalus. No acute intracranial process is detected. Dictated and Authenticated by: Dawit Junior MD. Ordering:JOSIANE Fay MD Lab Data Lab results reviewed: Yes I reviewed the patient's lab results. Labs: 03/05/24 19:26 Blood Blood Culture - Pending 03/05/24 19:10 Blood Blood Culture - Pending Laboratory Tests Range/Units 03/05/24 03/05/24 03/05/24 17:47 18:49 19:26 WBC (4.4-10.8) 10^3/uL 4.47 RBC (3.93-5.22) 10^6/uL 3.40 L Hgb (11.2-15.7) g/dL 9.3 L Hct (36.0-46.0) % 28.0 L MCV (80-95) fL 82 MCH (27.0-33.0) pg 27.4 MCHC (32.0-36.0) % 33.2 RDW (11.7-14.6) % 15.9 H Plt Count (130-400) 10^3/uL 386 MPV (8.0-11.0) fL 10.0 Immature Gran % % 0.2 Neutrophils % % 61.6 Lymphocytes % % 27.5 Monocytes % % 9.4 Eosinophils % % 0.2 Basophils % % 1.1 Nucleated RBC % (0.0-0.3) % 0.0 Absolute Neutrophils (1.2-6.7) 10^3/uL 2.75 Absolute Lymphocytes (1.2-3.4) 10^3/uL 1.23 Absolute Monocytes (0.1-0.8) 10^3/uL 0.42 Absolute Eosinophils (0.0-0.7) 10^3/uL 0.01 Absolute Basophils (0.0-0.2) 10^3/uL 0.05 ESR (0-30) mm/hr 7 VBG pH (7.31-7.41) 7.41 VBG pCO2 (41-51) mmHg 43 VBG pO2 mmHg 31 VBG HCO3 (23-28) mmol/L 27 VBG Total CO2 (24-29) mmol/L 26 VBG O2 Saturation % 54 VBG Base Excess (-2-3) mmol/L 3 VBG Lactate (0.6-1.4) mmol/L 0.6 Sodium (136-145) mmol/L 132 L Potassium (3.5-5.1) mmol/L 4.2 Chloride (98-107) mmol/L 97 L Carbon Dioxide (21.0-32.0) mmol/L 26.5 Anion Gap (3-11) mmol/L 8.5 BUN (7-18) mg/dL 8 Creatinine (0.55-1.02) mg/dL 0.6 Est GFR (CKD-EPI 2020) (mL/min/1.73m2) 103.33 Glucose (74-106) mg/dL 95 Calcium (8.5-10.1) mg/dL 9.1 Magnesium (1.8-2.4) mg/dL 1.6 L Total Bilirubin (0.2-1.0) mg/dL 0.4 Conjugated Bilirubin (0.0-0.2) mg/dL 0.2 AST (15-37) U/L 23 ALT (14-59) U/L 28 Alkaline Phosphatase (46-116) U/L 56 Ammonia (11-32) umol/L < 10 L Creatine Kinase (26-192) U/L 136 C-Reactive Protein (<or=0.5) mg/dL < 0.50 Total Protein (6.4-8.2) g/dL 7.2 Albumin (3.4-5.0) g/dL 4.0 Lipase (16-77) U/L 41 Procalcitonin ng/mL < 0.1 TSH (0.36-3.74) uIU/mL 2.86 Urine Color (Yellow) Yellow Urine Clarity (Clear) Clear Urine pH (5-8) 6.5 Ur Specific [place] (1.005-1.025) 1.025 Urine Protein (Neg-Trace) mg/dL Negative Urine Ketones (Negative) mg/dL 15 H Urine Blood (Negative) Negative Urine Nitrite (Negative) Negative Urine Bilirubin (Negative) Negative Urine Urobilinogen (Up to 0.2) mg/dL 0.2 Ur Leukocyte Esterase (Negative) Negative Urine Glucose (Negative) mg/dL Negative Range/Units 03/05/24 21:51 WBC (4.4-10.8) 10^3/uL RBC (3.93-5.22) 10^6/uL Hgb (11.2-15.7) g/dL 8.6 L Hct (36.0-46.0) % 26.3 L MCV (80-95) fL MCH (27.0-33.0) pg MCHC (32.0-36.0) % RDW (11.7-14.6) % Plt Count (130-400) 10^3/uL MPV (8.0-11.0) fL Immature Gran % % Neutrophils % % Lymphocytes % % Monocytes % % Eosinophils % % Basophils % % Nucleated RBC % (0.0-0.3) % Absolute Neutrophils (1.2-6.7) 10^3/uL Absolute Lymphocytes (1.2-3.4) 10^3/uL Absolute Monocytes (0.1-0.8) 10^3/uL Absolute Eosinophils (0.0-0.7) 10^3/uL Absolute Basophils (0.0-0.2) 10^3/uL ESR (0-30) mm/hr VBG pH (7.31-7.41) VBG pCO2 (41-51) mmHg VBG pO2 mmHg VBG HCO3 (23-28) mmol/L VBG Total CO2 (24-29) mmol/L VBG O2 Saturation % VBG Base Excess (-2-3) mmol/L VBG Lactate (0.6-1.4) mmol/L Sodium (136-145) mmol/L Potassium (3.5-5.1) mmol/L Chloride (98-107) mmol/L Carbon Dioxide (21.0-32.0) mmol/L Anion Gap (3-11) mmol/L BUN (7-18) mg/dL Creatinine (0.55-1.02) mg/dL Est GFR (CKD-EPI 2020) (mL/min/1.73m2) Glucose (74-106) mg/dL Calcium (8.5-10.1) mg/dL Magnesium (1.8-2.4) mg/dL Total Bilirubin (0.2-1.0) mg/dL Conjugated Bilirubin (0.0-0.2) mg/dL AST (15-37) U/L ALT (14-59) U/L Alkaline Phosphatase (46-116) U/L Ammonia (11-32) umol/L Creatine Kinase (26-192) U/L C-Reactive Protein (<or=0.5) mg/dL Total Protein (6.4-8.2) g/dL Albumin (3.4-5.0) g/dL Lipase (16-77) U/L Procalcitonin ng/mL TSH (0.36-3.74) uIU/mL Urine Color (Yellow) Urine Clarity (Clear) Urine pH (5-8) Ur Specific [place] (1.005-1.025) Urine Protein (Neg-Trace) mg/dL Urine Ketones (Negative) mg/dL Urine Blood (Negative) Urine Nitrite (Negative) Urine Bilirubin (Negative) Urine Urobilinogen (Up to 0.2) mg/dL Ur Leukocyte Esterase (Negative) Urine Glucose (Negative) mg/dL Quality:SDOH Health Related Social Needs: No Data to Display PFSH All Active Problems (Updated 03/06/24 @ 14:46 by Ramirez Simons DO) Hyponatremia (Acute) Alcohol use disorder (Acute) Anemia (Chronic) Acute confusion (Acute) Manic episode (Acute) Psychosis (Acute) Seborrheic dermatitis of scalp (Acute) Arthritis of wrist, right (Acute) Hyperlipidemia (Acute) Seborrhea (Acute 02/19/12) Right-sided low back pain without sciatica (Acute 02/19/12) Lumbago (Acute 02/19/12) Pain in joint, shoulder region (Acute 02/19/12) Generalized anxiety disorder (Acute 02/19/12) Gastro-esophageal reflux disease without esophagitis (Acute 02/19/12) PPI 1-2/wk Essential hypertension (Chronic 01/12/99) dx Dr Bardales 1998; same meds since then; cough on lisinopril Carpal tunnel syndrome (Acute 09/15/12) numbness R>L bilat; confirmed by nerve conduction, Dr Torrez 2012; self rx B6 Medical History Former smoker Family History Mother Hypertension Father Hypertension Other Diabetes Social History Smoking/Tobacco Use Status: Former Tobacco Use Tobacco: How many years used: 20 Second Hand Exposure: No Smoking risk assessment performed?: Yes Alcohol Intake: current Alcohol Intake frequency: a few times a week Alcohol type: beer Drug use: Never Substance use type: does not use Household members: spouse and none Housing: house Number of Children: 2 number of grandchildren: 1 Communication Needs: Corrective Lenses 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 Pets and animals: Yes Pets and animals: cat(s) Sexually active: No Do you think of yourself as: straight/heterosexual Current gender identity: female What is your relationship status?: How often do you talk on the phone with friends or family?: never How often do you get together with friends or relatives?: never How often do you attend taoism or hinduism services?: decline to answer Do you belong to any clubs or organized social groups?: no Panel score (0-1 are the most socially isolated patients): 0 What type of physical activity do you participate in: other Details: active at work Duration: decline to answer Frequency: decline to answer Paige/Zoroastrian: None Special paige needs: No Seatbelt use: always Helmet use: No Drive intox or ride w/intox transporter driver: No Do you feel safe at home: Yes Do you feel safe in your relationship?: Yes
[2024-03-05 18:56] LABS: BE (Venous) 3 mmol/L (-2-3); HCO3 (Venous) 27 mmol/L (23-28); O2 Sat (Venous) 54 %; TCO2 (Venous) 26 mmol/L (24-29); pCO2 (Venous) 43 mmHg (41-51); pH (Venous) 7.41 (7.31-7.41); pO2 (Venous) 31 mmHg
[2024-03-05 18:57] LABS: Abs Immature Grans 0.01 10^3/uL (0.0-0.06); Absolute Basophil Count 0.05 10^3/uL (0.0-0.2); Absolute Eosinophil Count 0.01 10^3/uL (0.0-0.7); Absolute Lymphocyte Count 1.23 10^3/uL (1.2-3.4); Absolute Monocyte Count 0.42 10^3/uL (0.1-0.8); Absolute Neutrophil Count 2.75 10^3/uL (1.2-6.7); Basophils % 1.1 %; Eosinophils % 0.2 %; HGB 9.3 g/dL (11.2-15.7); Immature Grans % 0.2 %; Lactate 0.6 mmol/L (0.6-1.4); Lymphocytes % 27.5 %; MCH 27.4 pg (27.0-33.0); MCHC 33.2 % (32.0-36.0); MCV 82 fL (80-95); Monocytes % 9.4 %; Neutrophils % 61.6 %; Platelet Count 386 10^3/uL (130-400); RDW 15.9 % (11.7-14.6); RDW-SD 47.9 fL; WBC 4.47 10^3/uL (4.4-10.8)
[2024-03-05 18:58] LABS: ESR 7 mm/hr (0-30)
[2024-03-05 19:22] LABS: ALT 28 U/L (14-59); AST 23 U/L (15-37); Alkaline Phosphatase 56 U/L (46-116); Anion Gap 8.5 mmol/L (3-11); BUN 8 mg/dL (7-18); Bilirubin, Direct 0.2 mg/dL (0.0-0.2); Bilirubin, Total 0.4 mg/dL (0.2-1.0); C-Reactive Protein < 0.50 mg/dL (<or=0.5); CO2 26.5 mmol/L (21.0-32.0); CREATININE 0.6 mg/dL (0.55-1.02); Calcium 9.1 mg/dL (8.5-10.1); Chloride 97 mmol/L (98-107); Creatine Kinase 136 U/L (26-192); Estimated GFR 103.33 (mL/min/1.73m2); Glucose 95 mg/dL (74-106); Lipase 41 U/L (16-77); Magnesium 1.6 mg/dL (1.8-2.4); Potassium 4.2 mmol/L (3.5-5.1); Sodium 132 mmol/L (136-145); TSH (W/Ref FT4) 2.86 uIU/mL (0.36-3.74); Total Protein 7.2 g/dL (6.4-8.2)
[2024-03-05 19:28] LABS: Procalcitonin < 0.1 ng/mL
[2024-03-05 19:45] LABS: Ammonia < 10 umol/L (11-32)
--- NOTE | 2024-03-05 20:00 | DI.CT_ITS ---
Exam(s) CT HEAD WO EXAM: CT HEAD WO CLINICAL HISTORY: confusion. TECHNIQUE: Imaging Protocol: Axial computed tomography images with coronal and sagittal reformatted images were created and reviewed COMPARISON: CT CT HEAD WO from 02/18/2024 FINDINGS: Ventricles and Extra axial spaces: Normal in size and morphology for the patient's age. Hemorrhage: None. Cerebral parenchyma: There are areas of decreased attenuation in the white matter suggesting chronic microvascular ischemic disease. No mass effect is identified. Stable basal gangliar calcifications are seen. Midline shift: None. Brainstem/Cerebellum: Normal. Calvarium: Normal. Visualized Paranasal sinuses/Mastoids: Clear. Soft Tissues: Unremarkable. IMPRESSION: No acute intracranial process. RADIATION DOSE DELIVERED: 706.47mGy.cm Total DLP DATA REPOSITORY: All CT scans at this facility are submitted to the National Radiology Data Registry (NRDR) Dose Index Registry (DIR) with the [employer] ([employer]). RADIATION OPTIMIZATION: All CT scans at this facility use at least one of these dose optimization te chniques: automated exposure control; mA and/or kV adjustment per patient size (includes targeted exa ms where dose is matched to clinical indication); or iterative reconstruction.
[2024-03-05] MEDS: Normal Saline 1,000 ML 1000 ML IV (20:31)
--- NOTE | 2024-03-05 21:31 | DI.VRAD_ITS ---
PROCEDURE INFORMATION: Exam: CT Head Without Contrast Exam date and time: 03/05/2024 9:15 PM Age: 58 years old Clinical indication: Other: Confusion TECHNIQUE: Imaging protocol: Computed tomography of the head without contrast. COMPARISON: CT HEAD WO 02/18/2024 11:54 AM FINDINGS: Brain: Slight prominence of cerebral sulci reflects mild cerebral atrophy. Poorly marginated hypodensities scattered throughout the deep and periventricular white matter of both cerebral hemispheres are consistent with underlying microvascular ischemic changes. Brainstem and cerebellum are unremarkable and there is no evidence of acute transcortical infarction or recent intracranial hemorrhage. Cerebral ventricles: Ventricular and cisternal spaces are normal in size and configuration and there is no midline shift or hydrocephalus. Paranasal sinuses: Grossly clear throughout. Mastoid air cells: Grossly clear bilaterally. Bones: Bony calvarium and skull base are intact and no acute fractures are detected. Soft tissues: Unremarkable. IMPRESSION: Mild atrophy and underlying microvascular ischemic changes with no evidence of acute transcortical infarction, recent intracranial hemorrhage or hydrocephalus. No acute intracranial process is detected. Dictated and Authenticated by: Dawit Junior MD. Ordering:JOSIANE Fay MD
[2024-03-05 21:52] LABS: Bilirubin Negative (Negative); Blood Negative (Negative); Clarity Clear (Clear); Glucose Negative (Negative); Ketones 15 mg/dL (Negative); Leukocyte Esterase Negative (Negative); Nitrite Negative (Negative); Specific Gravity 1.025 (1.005-1.025); Urobilinogen 0.2 mg/dL (Up to 0.2); pH 6.5 (5-8)
[2024-03-05 21:55] LABS: HCT 26.3 % (36.0-46.0); HGB 8.6 g/dL (11.2-15.7)
[2024-03-05 22:08] VITALS: BP 170/108; PULSE 79; RESP 18; O2SAT 98
[2024-03-05 23:15] VITALS: BP 134/76; PULSE 68; RESP 18; O2SAT 98
[2024-03-09 15:19] LABS: Lyme Ab w Rflx to Lyme Confirm Negative (Negative)
[2024-03-10 10:54] LABS: Anaplasma phagocytophilum Negative (Negative); B. miyamotoi PCR Negative (Negative); Babesia divergens/MO-1 Negative (Negative); Babesia duncani Negative (Negative); Babesia microti Negative (Negative); Ehrlichia chaffeensis Negative (Negative); Ehrlichia ewingii/canis Negative (Negative); Ehrlichia muris eauclairensis Negative (Negative)
== END 2024-03-06 00:11 | disposition home or self-care (01) ==
PROVIDERS: Emergency Provider Physician Assistant; PCP Family Medicine
DX: E87.1 Hypo-osmolality and hyponatremia (principal); D64.9 Anemia, unspecified; R41.0 Disorientation, unspecified; F41.1 Generalized anxiety disorder
CPT/HCPCS: 36415; 80048; 80076; 82550; 82805; 83690; 84145; 85652; 87040; 87798; 96360; 99284; 70450; 81003; 82140; 83605; 83735; 84443; 85014; 85018; 85025; 86140; 86618; 99283

== ENCOUNTER 2024-03-06 14:48 | Outpatient (CLI) | payer BC, SELFPAY ==
[2024-03-06 15:53] LABS: Iron 70 ug/dL (50-170)
--- NOTE | 2024-03-07 12:20 | NUR.NOTE ---
Referral faxed to [facility] for a follow up EGD, when available.
== END 2024-03-06 14:49 | disposition home or self-care (01) ==
LOC: LBO 14:49
PROVIDERS: PCP Family Medicine; Visit Provider Family Medicine
DX: D64.9 Anemia, unspecified (principal)
CPT/HCPCS: 36415; 83540

== ENCOUNTER 2024-12-09 02:29 | Outpatient (CLI) | payer BC, SELFPAY ==
[2024-12-09 09:35] LABS: Calculated LDL 68 mg/dL (<100); Cholesterol 201 mg/dL (<200); HDL Cholesterol 124 mg/dL (40-60); Triglyceride 49 mg/dL (<150)
== END 2024-12-09 02:30 | disposition home or self-care (01) ==
LOC: LBO 02:29
PROVIDERS: PCP Family Medicine; Referring Provider Family Medicine; Visit Provider Family Medicine
DX: E78.5 Hyperlipidemia, unspecified (principal)
CPT/HCPCS: 36415; 80061